=== PATIENT | male | born 2000 | race Caucasian/White ===

== ENCOUNTER 2024-07-03 17:58 | Emergency (ER) | payer OTHER, SELFPAY ==
[2024-07-03 18:02] VITALS: BP 145/112
[2024-07-03 18:17] VITALS: BP 148/91; BMI 27.9
[2024-07-03 18:29] LABS: % Basophils 0.1 % (0-2); % Immature Granulocytes 0.5 % (0-0.5); % Lymphocytes 18.8 % (20.5-51.1); % Monocytes 3.5 % (1.7-9.3); % Neutrophils 77.1 % (42.2-75.2); Absolute Immature Granulocytes 0.1 10^3/uL (0-0.05); Absolute Lymphocytes 2.7 10^3/uL (1.2-3.4); Absolute Monocytes 0.5 10^3/uL (0.1-0.6); Absolute Neutrophils 11.2 10^3/uL (1.4-6.5); Hematocrit 48.6 % (39.0-52.0); Hemoglobin 16.9 g/dL (13.0-18.0); Mean Corp Hgb Conc. 34.8 g/dL (33.0-37.0); Mean Corpuscular Hgb 29.2 pg (27.0-31.0); Mean Corpuscular Volume 83.9 fL (80.0-94.0); Mean Platelet Volume 10.9 fL (7.4-10.4); Nucleated Red Blood Cells % 0 % (-); Platelet Count 308 10^3/uL (130-400); Red Blood Cell Count 5.79 10^6/uL (4.70-6.10); Red Cell Dist. Width 12.4 % (11.5-14.5); White Blood Cell Count 14.5 10^3/uL (4.8-10.8)
[2024-07-03] MEDS: NSS 1000 IV (18:35)
[2024-07-03 19:00] VITALS: BP 150/93
[2024-07-03 19:01] LABS: ALT (SGPT) 26 U/L (0-50); AST (SGOT) 20 U/L (17-59); Albumin 5.3 g/dl (3.5-5.0); Alkaline Phosphatase 72 U/L (38-126); Blood Urea Nitrogen 19 mg/dl (9-20); Calcium 9.8 mg/dl (8.4-10.2); Carbon Dioxide 23 mmol/L (22-30); Chloride 104 mmol/L (98-107); Estimated Creatinine Clearance 101 ml/min; Glucose 128 mg/dl (70-99); Potassium 3.8 mmol/L (3.5-5.1); Sodium 141 mmol/L (135-145); Total Protein 8.2 g/dl (6.3-8.2); eGFR > 60.00
[2024-07-03 19:30] LABS: TSH Reflex To Free T4 1.11 uIU/ml (0.47-4.68)
[2024-07-03 20:00] VITALS: BP 138/80
[2024-07-03 21:00] VITALS: BP 126/83
--- NOTE | 2024-07-03 21:31 | ED.GENMED ---
History of Present Illness
General
Chief Complaint: Abnormal Lab Value
Source: patient and family (Mother)
Exam Limitations: none
Time Seen by Provider: 07/03/24 18:14
Nursing documentation reviewed up to this point in time: agreed with
History of Present Illness
History of Present Illness:
23-year-old male presents to the emergency room with his mother for evaluation of anxiety and jitteriness, poor sleep. Patient reports that he had URI at the end of May and subsequently developed left ear infection. He was prescribed a Medrol
Dosepak as well as azithromycin by his primary doctor for this issue; when he completed this course of medication he still had some fullness in the left side and so he was prescribed prednisone which he is currently on. He says that over the past
few days he has not been sleeping well, has been increasingly jittery and has had brain fog. He says that he today began to feel very anxious and having palpitations. Came to the emergency room for evaluation. He says symptoms were quite intense
on arrival but since he has come back to a room they have greatly improved and he is minimally symptomatic. He denies any known cardiac history. He does state that he had outpatient labs drawn on which showed marginally abnormal TSH
(0.31, slightly low based on reported range) and slightly elevated calcium (10.7).
Past History
Past History
ED Past Medical History: None
ED Past Surgical History: None
Review of Systems
Review of Systems
All Other Systems: ROS reviewed and negative except as documented in HPI and ROS
Constitutional: Denies fever
Respiratory: Denies cough or trouble breathing
Cardiac: Reports palpitations; Denies chest pain
ABD/GI: Denies abdominal pain, nausea or vomiting
: Denies flank pain
Musculoskeletal: Denies neck pain or back pain
Neurological: Reports headache (Sinus fullness on the left)
Psychiatric: Reports anxiety and other (Poor sleep)
Phy Exam
Physical Exam
Physical Exam:
General: Awake, alert, oriented x3; no acute distress
Head: Normocephalic, atraumatic
Eyes: Conjunctiva normal, EOMI
Ears: TMs clear bilaterally; mild to moderate cerumen in ear canals bilaterally but no impaction
Throat: Airway intact, handling secretions
Neck: Trachea midline, supple without meningismus, no JVD
Lungs: Clear to auscultation bilaterally, no wheezing, rales, rhonchi
Heart: Regular rate and rhythm, no murmurs, gallops, or rubs�triage tachycardia resolved by my assessment
Abd: Soft, non distended, nontender
Neuro: No gross deficits
Skin: no rash
Extremities: No edema in extremities, equal pulses in all extremities
Scores
Heart Failure Risk
Heart Failure Risk Score: Not Applicable
Heart Score for Chest Pain Patients
STEMI patient?: Not applicable
Withdrawal Assessment of Alcohol
Withdrawal Assessment Completed?: Not applicable
Course
Orders/Labs/Results
Orders:
Orders
07/03/24 17:59
Electrocardiogram (*1) Urgent
Reason for Study: Tachycardia
EKG- Treatment ONCE
07/03/24 18:14
0.9% Sodium Chloride 1000 ml [Nss] 1,000 ml IV BOLUS
07/03/24 18:21
Complete Blood Count/With Diff Urgent
Comprehensive Metabolic Panel Urgent
TSH Reflex To Free T4 Urgent
07/03/24 18:58
EKG [Electrocardiogram (*1)] Urgent
Reason for Study: Tachycardia
EKG- Treatment ONCE
07/03/24 20:48
Electrocardiogram (*1) Urgent
Reason for Study: Tachycardia
EKG- Treatment ONCE
Abnormal Lab Results
07/03/24
18:21
WBC 14.5 H 10^3/uL
(4.8-10.8)
MPV 10.9 H fL
(7.4-10.4)
Abs Immat Gran (auto) 0.1 H 10^3/uL
(0-0.05)
Absolute Neuts (auto) 11.2 H 10^3/uL
(1.4-6.5)
Neutrophils % 77.1 H %
(42.2-75.2)
Lymphocytes % 18.8 L %
(20.5-51.1)
Glucose 128 H mg/dl
(70-99)
Albumin 5.3 H g/dl
(3.5-5.0)
07/03/24 18:21
07/03/24 18:21
Vital Signs
Initial and Last Documented VS:
Initial Vital Signs
Temp Pulse Resp BP Pulse Ox
37.1 C 151 18 145/112 99
07/03/24 18:02 07/03/24 18:02 07/03/24 18:02 07/03/24 18:02 07/03/24 18:02
Last Documented Vital Signs
Temp Pulse Resp BP Pulse Ox
37.1 C 98 12 138/80 96
07/03/24 18:02 07/03/24 20:30 07/03/24 20:15 07/03/24 20:00 07/03/24 20:30
MDM/Problems Addressed
Differential Diagnosis Includes:
Dysrhythmia, anxiety/panic, steroid side effect, anemia, electrolyte derangement, hyperthyroidism
MDM/Problems Addressed:
23-year-old male presents for evaluation of jitteriness, poor sleep, palpitations and anxiety in the setting of recent steroid use for URI symptoms/sinus congestion. In triage she was hypertensive and tachycardic but once arriving into a room his
vital signs normalized. His EKG in triage showed sinus tachycardia. Send off labs including a CBC and a CMP, thyroid studies. Will monitor on telemetry. Serial EKGs. Reassess after the above.
Clinical reassessment patient is asymptomatic. His heart rate is in the 80s to 90s. His labs were reviewed: CBC shows leukocytosis likely from steroid use. CMP shows hyperglycemia again in the setting of steroid use. His calcium is normal. His
TSH is normal. Suspect his symptoms are related to steroid use. Advised to discontinue steroids. Stable for discharge to follow-up with PCP. Patient feels comfortable at this plan. All questions answered.
*Pulse Oximetry
Patient hypoxic: no
*EKG
Interpreted by ED Provider?: Yes
Heart Rate: 154
Rate: tachycardiac
Rhythm: sinus and sinus tachycardia
[place]: normal axis
Interval: normal interval
QRS Pattern: normal QRS
Ischemia: non-specific ST changes
*Critical Care Note
Total Time (30-74mins, 75-104mins- exclusive of procedures): Not Applicable
Data Reviewed
Source: patient and family
ED Attending Note
-
Portions of this chart may have been created with voice recognition software.� Occasional wrong word or��sound alike� substitutions may have occurred due to the inherent limitations of voice recognition software.
Discharge Plan
Departure
Patient Disposition: Home (Routine Discharge)
Date of Disposition: 07/03/24
Time of Disposition: 21:37
Patient with high blood pressure during this ER visit?: Yes
Discharge Problem:
Tachycardia, Brain fog, Insomnia
Instructions: Tachycardia, Oral steroid medicines
Prescriptions:
No Action
No Current Medications
0
Referrals:
Russ Iqbal DO [Family Provider] - Follow up in 2-3 days
Activity Restrictions/Additional Instructions:
Thank you for visiting the Emergency Department at [facility].
1. Please schedule a follow up appointment as directed. Call first thing tomorrow morning to make an appointment.
2. If indicated, please take your medications as instructed and indicated on discharge paperwork.
3. If any of your symptoms do not improve, or persist, or become more severe within 6-12 hours, please return to the emergency department for further care.
4. Please return to the emergency department if you develop a headache, neck pain/stiffness, fever greater than 100.4F, chest pain, shortness of breath, persistent nausea, vomiting, slurred speech, difficulty walking, numbness/tingling, weakness,
signs of infection or any other symptoms that are worrisome to you.
Please call [phone] if you have any questions.
Interventions
Interventions:
*Risk Screen - Suicide Last Done: 07/03/24 18:04
*General Assessment Last Done: 07/03/24 18:04
*Neglect/Abuse Screening Last Done: 07/03/24 18:04
*ED COVID-19 Vaccine History Last Done: 07/03/24 18:04
Discharge Date and Time
Print Language: [place]
== END 2024-07-03 21:53 | disposition home or self-care (01) ==
LOC: EMR 17:58
PROVIDERS: EMERGENCY PHYSICIAN Emergency Medicine; FAMILY PHYSICIAN Family Medicine
DX: G47.00 Insomnia, unspecified (principal); R00.0 Tachycardia, unspecified; R41.89 Other symptoms and signs involving cognitive functions and awareness; F41.9 Anxiety disorder, unspecified
CPT/HCPCS: 96360; 99284; 80053; 84443; 85025; 93005